=== PATIENT | male | born 1930 | race Caucasian/White ===

== ENCOUNTER → 2016-09-23 | Outpatient (CLI) | payer MEDICARE, OTHER | LOC: VAS 16:25 | DX: I48.0 Paroxysmal atrial fibrillation (principal); I10 Essential (primary) hypertension; I35.0 Nonrheumatic aortic (valve) stenosis; I35.1 Nonrheumatic aortic (valve) insufficiency; I07.1 Rheumatic tricuspid insufficiency ==

== ENCOUNTER → 2016-09-26 | Outpatient (CLI) | payer MEDICARE, OTHER | LOC: LAB 14:21 | DX: I48.0 Paroxysmal atrial fibrillation (principal) ==

== ENCOUNTER 2018-09-30 14:00 | Outpatient (RCR) | payer MEDICARE, BC | END 2018-09-30 14:30 | disposition home or self-care (01) | LOC: PT 14:00 | DX: M43.10 Spondylolisthesis, site unspecified (principal); R26.9 Unspecified abnormalities of gait and mobility ==